=== PATIENT | male | born 1980 | race Caucasian/White ===

== ENCOUNTER 2017-08-28 02:12 | Emergency (ER) | payer BC ==
[~2017-08-28] VITALS: Ht 177.8 cm; Wt 76.7 kg
[2017-08-28 02:25] VITALS: BP 110/74
[2017-08-28] MEDS ORDERED: KLONOPIN1 MG ORAL (02:26)
[2017-08-28] MEDS ORDERED: ADDERALL 20 MG20 MG ORAL (02:26)
[2017-08-28] MEDS ORDERED: Norco 5mg/325mg tab ORAL ONE (02:45)
[2017-08-28] MEDS ORDERED: IBUPROFEN600 MG ORAL (02:55)
[2017-08-28] MEDS ORDERED: HYDROCODON-ACE1 EA15 ORAL (02:55)
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
[2017-08-28 02:59] VITALS: BP 110/74
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
== END 2017-08-28 03:05 | disposition home or self-care (01) ==
LOC: EMR 02:40
DX: S42.022A Displaced fracture of shaft of left clavicle, initial encounter for closed fracture (principal); W22.8XXA Striking against or struck by other objects, initial encounter; Y93.55 Activity, bike riding; Y92.9 Unspecified place or not applicable; F31.9 Bipolar disorder, unspecified
CPT/HCPCS: 29105; 99283

== ENCOUNTER 2017-09-09 11:54 | Emergency (ER) | payer BC ==
[~2017-09-09] VITALS: Ht 180.3 cm; Wt 74.8 kg
[~2017-09-09 11:54] MED LIST: ADDERALL 20 MG20 MG ORAL; HYDROCODON-ACE1 EA15 ORAL; IBUPROFEN600 MG ORAL; KLONOPIN1 MG ORAL
[2017-09-09 12:13] VITALS: BP 94/70
[2017-09-09 12:24] VITALS: BP 94/70
== END 2017-09-09 13:00 | disposition left against medical advice (07) ==
LOC: EMR 12:44
DX: R42 Dizziness and giddiness (principal); Z53.21 Procedure and treatment not carried out due to patient leaving prior to being seen by health care provider
CPT/HCPCS: 99281